=== PATIENT | male | born 1980 | race Caucasian/White ===

== ENCOUNTER 2017-09-27 09:57 | Emergency (ER) | payer OTHER ==
[2017-09-27 10:03] VITALS: BP 124/76
[2017-09-27] MEDS ORDERED: BUPIVACAINE HCL/PF 5 MG/ML 10ML VIAL IJ ONE (10:05)
[2017-09-27] MEDS ORDERED: DIPH,PERTUSS(ACELL),TET VAC/PF 0.5 ML DISP.SYRIN IM ONE (10:05)
[2017-09-27] MEDS ORDERED: SODIUM CHLORIDE IRRIG SOLUTION 1,000 ML IR ONE (10:07)
[2017-09-27] MEDS ORDERED: BACITRACIN 1 EACH PACKET TP ONE (10:39)
--- NOTE | 2017-09-27 10:41 | ED Physician Documentation ---
General Adult - HISTORIAN Historian: patient - HPI Stated Complaint: Leg Lac Chief Complaint: Laceration/Recheck/Suture Additional Information: Chain saw to leg just prior to arrival. Unknown last tetanus. - ROS CONST: no problems - PAST HX Past History: none Allergies/Adverse Reactions: Allergies Allergy/AdvReac Type Severity Reaction Status Date / Time No Known Allergies Allergy Verified 09/27/17 10:02 Home Medications: Ambulatory Orders Medication Instructions Recorded Cephalexin [Keflex] 500 mg PO Q6H #30 capsule 09/27/17 - SOCIAL HX Smoking History: non-smoker - FAMILY HX Family History: No - VITAL SIGNS Vital Signs: Vital Signs Temp Pulse Resp BP Pulse Ox 98.6 F 101 H 16 124/76 96 09/27/17 09:57 09/27/17 09:57 09/27/17 09:57 09/27/17 09:57 09/27/17 09:57 - REVIEWED ASSESSMENTS Nursing Assessment Reviewed: Yes Vitals Reviewed: Yes Procedures Wound Location: lower extremity Wound Length: 7 Wound's Depth, Shape: linear, irregular Wound Explored: no foreign body removed Irrigated w/ Saline (ccs): 2,000 Betadine Prep?: No (chlorhexadine) Anesthesia: 0.5% Sensorcaine Volume of Anesthetic: 6 Wound Repaired With: sutures Suture Size/Type: 3:0, nylon Number of Sutures: 5 Layer Closure?: No Sterile Dressing Applied?: Yes Progress - Progress Progress: Tib films done because pt thought a fragment of bone came out of lac befor ehe arrived in ER. Films negative per my read. ED Results Lab/Radiology - Orders Orders: ED Orders Category Date Time Status Apply occlusive dressing D Care 09/27/17 10:39 Ordered TIBIA & FIBULA 2 VIEW [RAD] Stat Exams 09/27/17 Ordered Bacitracin Med 09/27/17 10:39 Once 1 each TP NOW ONE Bupivacaine HCl/Pf [Marcaine 0.5%] Med 09/27/17 10:05 Discontinued 50 mg IJ NOW ONE Diph,Pertuss(Acell),Tet Vac/Pf [Adacel] Med 09/27/17 10:05 Discontinued 0.5 ml IM .ONCE ONE Sodium Chloride Irrig Solution [Irrigation Normal Med 09/27/17 10:07 Discontinued Saline] 2,000 ml IR NOW ONE General Adult Physical Exam - PHYSICAL EXAM GENERAL APPEARANCE: moderate distress EENT: eye inspection normal, ENT inspection normal NECK: normal inspection RESPIRATORY: no resp distress BACK: other (pain free movements) SKIN: warm/dry, normal color, other (7 cm lac left ant tib just distal to mid tib) EXTREMITIES: normal range of motion, no edema NEURO: CN's nml as tested, motor nml, sensation nml, cognition normal Discharge Clincal Impression: Laceration of leg Qualifiers: Encounter type: initial encounter Laterality: left Qualified Code(s): S81.812A - Laceration without foreign body, left lower leg, initial encounter Referrals: Ishmael Lopez MD [Primary Care Provider] - 2 Days Additional Instructions: Keep the stitches clean and dry. After 24 hours, you can shower, but do not soak the stitches. Keep the leg elevated as much as possible for the next two- three days. Ice to the area for 30 minutes of each hour you are awake. Return to the ER if the leg seems to be infected. Make an appointment at the [facility] next door, to have the stitches removed in about 7 days. Their phone number is [phone]. Your antibiotic prescription is at [facility]. Condition: Good Disposition: 01 HOME, SELF-CARE Decision to Admit: NO Decision Time: 10:58
--- NOTE | 2017-09-27 11:11 | Diagnostic Imaging Report ---
SVITLANA SRINIVASAN [facility] [address] [facility] [address] [address] Report Submission Date: September 27, 2017 11:07:02 AM CDT Patient Study Name: ALEX SAVAGE Date: September 27, 2017 10:42:37 AM CDT Modality Type: DX Gender: M Description: LOWER EXTREMITY : 80 Institution: [facility] Physician: SVITLANA SRINIVASAN Examination: Plain film left tibia/fibula History: LEFT TIB/FIB, PAIN IN MID LEG AFTER CHAINSAW INJURY TODAY, LACERATION MID BARBA AREA (Hx) Trauma Comparison exams: None available Findings: 2 views of the left tibia fibula demonstrates normal cortical margins. No evidence for fracture line. No soft tissue abnormalities or radiopaque foreign bodies. Impression: No acute osseous abnormality. Electronically signed on September 27, 2017 11:07:02 AM CDT by: Nigel SPICER
== END 2017-09-27 11:10 | disposition home or self-care (01) ==
LOC: ED 09:57
DX: S81.812A Laceration without foreign body, left lower leg, initial encounter (principal); W29.3XXA Contact with powered garden and outdoor hand tools and machinery, initial encounter; Y93.9 Activity, unspecified; Y92.9 Unspecified place or not applicable; Y99.9 Unspecified external cause status
CPT/HCPCS: 73590; 90715; J3490; 12004; 90471; J7030